=== PATIENT | female | born 1995 | race Caucasian/White ===

== ENCOUNTER 2017-10-16 00:46 | Emergency (ER) | payer MEDICAID, SELFPAY ==
[2017-10-16 00:48] VITALS: BP 119/67; PULSE 119; RESP 16; TEMP 36.9; O2SAT 95; BMI 33.3
--- NOTE | 2017-10-16 01:08 | EKG12_ITS ---
Test Reason : Blood Pressure : / mmHG Vent. Rate : 102 BPM Atrial Rate : 102 BPM P-R Int : 170 ms QRS Dur : 086 ms QT Int : 350 ms P-R-T Axes : 042 068 020 degrees QTc Int : 456 ms Sinus tachycardia Otherwise normal ECG Confirmed by MONSE CALVO, KING ([id number]), assistant editor HESHAM PARKS ([id number] on 10/20/2017 2:53:55 PM Referred By: YARELI Confirmed By:KING SHEA MD
--- NOTE | 2017-10-16 01:14 | ED.DCSUM_ITS ---
History of Present Illness Chief Complaint: Anxiety Informant: Patient, Significant Other Onset: Today Quality: anxious Current Severity: Mild Maximum Severity: Severe Worsened by: nothing Relieved by: boyfriend helping her to calm down Associated Symptoms: sob, heart racing, a little lightheaded Narrative: Patient has a history of depression and anxiety for which she takes Lexapro. She states that she has not taken it for about a week. When asked why, she states that simply she forgets. Today, she had 3 or 4 separate anxiety attacks , they lasted about 5 minutes apiece but the last one lasted for about 10 minutes, she was coming into the hospital because she could not calm down, although she did start to feel a lot better upon arriving here and now she feels much better. She is talking and laughing with her boyfriend upon initial evaluation. Denies any suicidal ideation. She states that symptoms start with palpitations/heart racing, and then it becomes hard to take a breath. She denies any chest discomfort. Same symptoms she had in the past with anxiety attacks. No inciting incident, they seem to come out of nowhere today. No recent leg pain or swelling, history of DVT or PE, recent travel, immobilization , or hospitalization, no recent surgeries. - Past Medical History (1) Major depression Status: Chronic (2) Anxiety Status: Chronic Past Medical History - Allergies and Home Meds Allergies/Adverse Reactions: Allergies No Known Allergies Allergy (Verified 10/16/17 00:47) Primary Care Physician: Jose Doctor,Out of [Primary Care Provider] - 3-5 Days if not improving Smoking Status: Current every day smoker Drugs: None Review of Systems All systems negative except as indicated Cardiovascular: Reports: Palpitations. Denies: Chest pain Respiratory: Reports: Dyspnea Neurological: Reports: - - lightheadedness, gone. no syncope or near-syncope Psych: Reports: Anxiety. Denies: Suicidal thoughts, Suicidal ideations Physical Exam Vital Signs/Narrative: Vital Signs Temp Pulse Resp BP Pulse Ox 10/16/17 00:48 98.5 F 119 H 16 119/67 95 General: Well nourished, Well developed Head: Normocephalic, Atraumatic Eyes: Perrl, EOMI ENT: Moist mucous membranes, No rhinorrhea Neck: Supple, Nontender Cardiovascular: Regular rate, Regular rhythm, No murmurs Respiratory: No distress, CTA bilaterally, Chest nontender Extremities: Nontender, No edema Skin: Normal color, No rash Neurological: Alert, Oriented x3, Cranial nerves II-XII grossly intact, Normal Strength, Normal Sensation Psychological: Normal affect - laughing Diagnostic/Tx/Re-eval - Rhythm Strip Rhythm Strip: Sinus Tach Rate: 110 Ectopy: None - EKG 1 Interpretation: No Acute Injury Pattern, Sinus Tachycardia, - - Normal intervals. No delta. - Medical Decision Making Patient appears well and is clearly not acutely anxious. She was advised to continue taking her Lexapro. This was unlikely a primary dysrhythmia although that is certainly in the differential diagnosis, however she has discontinued her Lexapro for the last week and is suddenly having anxiety attacks that are similar to the ones for which she was put on Lexapro. For now I recommended she continue taking her Lexapro and follow-up if she continues having anxiety attacks. ED Disposition - Plan for ED Patient: Disposition: Home or Assisted Living Chief Complaint: Anxiety Diagnosis: Anxiety, Palpitations Instructions: ED Panic Attack Referrals: [facility] Doctor,Out of [Primary Care Provider] - 3-5 Days if not improving Additional Instructions: Make sure you take her Lexapro daily.
[2017-10-16 01:31] VITALS: RESP 16
== END 2017-10-16 01:33 | disposition home or self-care (01) ==
LOC: ED 01:29
PROVIDERS: Emergency Provider Emergency Medicine
DX: F41.9 Anxiety disorder, unspecified (principal); R00.2 Palpitations; F32.9 Major depressive disorder, single episode, unspecified; Z79.899 Other long term (current) drug therapy; Z91.14 Patient's other noncompliance with medication regimen
CPT/HCPCS: 93005; 99282